=== PATIENT | female | born 2000 | race African-American/Black ===

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

== ENCOUNTER 2018-02-25 12:16 | Emergency (ER) | payer MEDICAID ==
[~2018-02-25] VITALS: Ht 170.2 cm; Wt 86.2 kg
[~2018-02-25 12:16] MED LIST: ANUSOL-HC30 GM RC; COLACE100 MG ORAL
[2018-02-25] MEDS ORDERED: NKM (12:24)
[2018-02-25 12:35] VITALS: BP 122/77
[2018-02-25] MEDS ORDERED: Acetaminophen 500mg (ES) tab ORAL ONE (13:00)
--- NOTE | 2018-02-25 13:03 | Emergency Room Report ---
History of Present Illness General Chief Complaint: Vaginal Source: Patient Present Illness HPI 17-year-old female patient presents ER complaining of vaginal bleeding for the past 2 days. Reports symptoms began yesterday. Reports has gone through "10 heavy-soaked pads" since that time. Reports noting clots in urine. Denies dysuria. Reports abdominal cramping during this time. Reports history of IUD placed in May, states "I think it may be related to my IUD". Denies dysuria, flank pain, fever, vomiting, chest pain, shortness of breath. Denies syncope or dizziness. Denies diarrhea, reports history of constipation. Reports last bowel movement yesterday. Reports hx of , reports terminated by choice, reports no complications. Allergies: Coded Allergies: No Known Allergies (Unverified , 02/25/18) Patient History Past Medical History: see triage record Last Menstrual Period: 02/22/18 Now: No Reviewed Nursing Documentation: PMH: Agreed; PSxH: Agreed Nursing Documentation-PMH Past Medical History: No Stated History Review of Systems All Other Systems: negative except mentioned in HPI Physical Exam Vital Signs Date Time Temp Pulse Resp B/P (MAP) Pulse Ox O2 Delivery O2 Flow Rate FiO2 02/25/18 12:19 98.2 66 18 122/77 100 Room Air Sp02 EP Interpretation: reviewed, normal General Appearance: well appearing, no apparent distress, alert, GCS 15, non- toxic Head: normocephalic, atraumatic Eyes: bilateral eye normal inspection, bilateral eye PERRL ENT: hearing grossly normal, normal pharynx, no angioedema, normal voice, uvula midline, moist mucus membranes Neck: full range of motion Respiratory: lungs clear, normal breath sounds, no rhonchi, no respiratory distress, no accessory muscle use, no wheezing, speaking full sentences Cardiovascular #1: regular rate, rhythm, no edema Gastrointestinal: non tender, soft, no mass, non-distended, no guarding, no rebound Genitourinary: no CVA tenderness, deferred Musculoskeletal: back normal, digits/nails normal, gait/station normal, normal range of motion, non-tender Neurologic: alert, oriented x3, responsive, motor strength/tone normal, sensory intact Psychiatric: mood/affect normal Skin: no rash Medical Decision Making PA Attestation Dr. Salamanca is my supervising Physician whom patient management has been discussed with. Diagnostic Impression: Primary Impression: Dysfunctional uterine bleeding Additional Impression: Constipation ER Course Pt presents to ED c/o vaginal bleeding. DDX considered but are not limited to threatened , incomplete , complete , ectopic, UTI, septic , fibroids, dysfunctional uterine bleeding, STI, ovarian torsion, anemia, constipation, menstrual cramps. No abdominal tenderness to palpation, low suspicion for acute abdomen. Negative Rovsing, no fever, low suspicion for appendicitis, does not require CT at this time. VITAL SIGNS are WNL, patient is afebrile Pelvic exam: deferred. Ordered CBC, CMP, Type and Screen, UA, UCG, bHCG, IV NS and pelvic US. Tylenol for pain control. ER COURSE: CBC and CMP unremarkable, no elevation in WBCs or LFTs, Lipase not elevated, H& H normal UA results blood in urine, no signs of infection Urine negative BetaHCG <1 Rh antibody negative Blood type B positive Results discussed with patient. Pelvic US shows IUD in place, essentially unremarkable exam otherwise, trace free cul-de-sac fluid, likely physiologic. Results discussed with patient. Needs further testing and evaluation for vaginal bleeding as outpatient. Patient resting comfortably, in no acute distress, nontoxic appearing. F/u with OBGYN Patient complaining of constipation. Will provide with lactulose for constipation symptoms. Take Tylenol for pain. Followup with PCP. Discuss referral to GI. DISCHARGE: -Rx provided for Tylenol for pain -Rx provided for lactulose At this time pt. is stable for d/c to home. At this time patient is resting comfortably, in no acute distress, nontoxic appearing, smiling and talking without difficulty. Will provide printed patient care instructions, and any necessary prescriptions. Patient instructed to follow with OBGYN for further treatment and referral as needed. Care plan and follow up instructions have been discussed with the patient prior to discharge. Patient reports understanding and agreement to treatment plan. Patient questions asked and answered. ER precautions given, patient instructed to return to ER immediately for any new or worsening of symptoms. - Please note that this Emergency Department Report was dictated using [employer] specialist technology software, occasionally this can lead to erroneous entry secondary to interpretation by the dictation equipment. Labs Test 02/25/18 13:19 02/25/18 13:20 Urine Color Yellow Urine Appearance Clear Urine pH 5 (4.5-8.0) Urine Specific [place] 1.015 (1.005-1.035) Urine Protein 1+ (NEGATIVE) Urine Glucose (UA) Negative (NEGATIVE) Urine Ketones Negative (NEGATIVE) Urine Blood 5+ (NEGATIVE) Urine Nitrite Negative (NEGATIVE) Urine Bilirubin Negative (NEGATIVE) Urine Urobilinogen Normal MG/DL (0.0-1.0) Urine Leukocyte Esterase 1+ (NEGATIVE) Urine RBC 30-40 /HPF (0 - 2) Urine WBC 0-2 /HPF (0 - 2) Urine Squamous Epithelial Cells Occasional /LPF Urine Bacteria Occasional /HPF (NONE) Urine HCG, Qualitative Negative (NEGATIVE) White Blood Count 7.0 K/UL (4.8-10.8) Red Blood Count 4.78 M/UL (4.20-5.40) Hemoglobin 13.3 G/DL (12.0-16.0) Hematocrit 40.3 % (37.0-47.0) Mean Corpuscular Volume 84 FL (80-99) Mean Corpuscular Hemoglobin 27.7 PG (27.0-31.0) Mean Corpuscular Hemoglobin Concent 32.9 G/DL (32.0-36.0) Red Cell Distribution Width 12.1 % (11.6-14.8) Platelet Count 213 K/UL (150-450) Mean Platelet Volume 8.7 FL (6.5-10.1) Neutrophils (%) (Auto) 60.3 % (45.0-75.0) Lymphocytes (%) (Auto) 30.0 % (20.0-45.0) Monocytes (%) (Auto) 5.8 % (1.0-10.0) Eosinophils (%) (Auto) 2.9 % (0.0-3.0) Basophils (%) (Auto) 1.0 % (0.0-2.0) Sodium Level 141 MMOL/L (136-145) Potassium Level 3.7 MMOL/L (3.5-5.1) Chloride Level 105 MMOL/L (98-107) Carbon Dioxide Level 26 MMOL/L (21-32) Anion Gap 10 mmol/L (5-15) Blood Urea Nitrogen 13 mg/dL (7-18) Creatinine 0.8 MG/DL (0.55-1.30) Estimat Glomerular Filtration Rate > 60 mL/min (>60) Glucose Level 87 MG/DL (74-106) Calcium Level 9.6 MG/DL (8.5-10.1) Total Bilirubin 0.3 MG/DL (0.2-1.0) Aspartate Amino Transf (AST/SGOT) 10 U/L (15-37) Alanine Aminotransferase (ALT/SGPT) 19 U/L (12-78) Alkaline Phosphatase 99 U/L (46-116) Total Protein 9.0 G/DL (6.4-8.2) Albumin 4.2 G/DL (3.4-5.0) Globulin 4.8 g/dL Albumin/Globulin Ratio 0.9 (1.0-2.7) Lipase 91 U/L (73-393) Human Chorionic Gonadotropin, Quant < 1 mIU/mL (1-6) CT/MRI/US Diagnostic Results CT/MRI/US Diagnostic Results : Imaging Test Ordered: Pelvic US Impression Per bicycle service technician, IUD in correct placement, remainder of exam negative Last Vital Signs Date Time Temp Pulse Resp B/P (MAP) Pulse Ox O2 Delivery O2 Flow Rate FiO2 02/25/18 12:35 98.2 18 122/77 100 Room Air 02/25/18 12:19 66 Status: improved Disposition: HOME, SELF-CARE Condition: Stable Scripts Lactulose (LACTULOSE*) 20 Gm/30 Ml Solution 30 ML ORAL DAILY, #90 ML 0 Refills Prov: Landon Santana 02/25/18 Acetaminophen* (TYLENOL EXTRA STRENGTH*) 500 Mg Tablet 500 MG ORAL Q8H PRN for Prn Headache/Temp > 101, #30 TAB 0 Refills Prov: Landon Santana 02/25/18 Patient Instructions: Dysfunctional Uterine Bleeding Additional Instructions: Followup with OBGYN in 1-2 days. Take medications as directed. Take Tylenol for pain, do not take Ibuprofen. Patient questions asked and answered. ER precautions given, patient instructed to return to ER immediately for any new or worsening of symptoms including but not limited to chest pain, SOB, intractable vomiting, profuse vaginal bleeding, abdominal pain. Blood type B positive Rh anitbody negative Landon Santana Feb 25, 2018 13:03
[2018-02-25 13:32] LABS: APPEARANCE,URINE CLEAR; BILIRUBIN, URINE NEGATIVE (NEGATIVE); GLUCOSE, URINE (UA) NEGATIVE (NEGATIVE); KETONES,URINE NEGATIVE (NEGATIVE); LEUKOCYTE ESTERASE ,URINE 1+ (NEGATIVE); NITRITE,URINE NEGATIVE (NEGATIVE); PH,URINE 5 (4.5-8.0); PROTEIN,URINE 1+ (NEGATIVE); UROBILINOGEN,URINE NORMAL MG/DL (0.0-1.0)
[2018-02-25 13:39] LABS: EOSINOPHILS % (AUTO) 2.9 % (0.0-3.0); HEMATOCRIT 40.3 % (37.0-47.0); HEMOGLOBIN 13.3 G/DL (12.0-16.0); MEAN CORPUSCULAR VOLUME 84 FL (80-99); MONOCYTES % (AUTO) 5.8 % (1.0-10.0); NEUTROPHILS % (AUTO) 60.3 % (45.0-75.0); PLATELET COUNT 213 K/UL (150-450); RED BLOOD COUNT 4.78 M/UL (4.20-5.40); RED CELL DISTRIBUTION WIDTH 12.1 % (11.6-14.8)
[2018-02-25 13:49] LABS: COLOR,URINE YELLOW
[2018-02-25 13:53] LABS: ANION GAP 10 mmol/L (5-15); BLOOD UREA NITROGEN 13 mg/dL (7-18); CALCIUM 9.6 MG/DL (8.5-10.1); CARBON DIOXIDE 26 MMOL/L (21-32); CHLORIDE 105 MMOL/L (98-107); CREATININE 0.8 MG/DL (0.55-1.30); POTASSIUM 3.7 MMOL/L (3.5-5.1); SODIUM 141 MMOL/L (136-145)
[2018-02-25 13:57] LABS: ALANINE AMINOTRANSFERASE 19 U/L (12-78); ALBUMIN 4.2 G/DL (3.4-5.0); ALBUMIN/GLOBULIN RATIO 0.9 (1.0-2.7); ALKALINE PHOSPHATASE 99 U/L (46-116); ASPARTATE AMINO TRANSFERASE 10 U/L (15-37); BILIRUBIN,TOTAL 0.3 MG/DL (0.2-1.0)
[2018-02-25 15:15] VITALS: BP 120/68
--- NOTE | 2018-02-25 15:25 | Diagnostic Imaging Report ---
Indication: History vaginal bleeding, negative test Technique: Transabdominal and transvaginal images. Doppler interrogation of the bilateral ovaries Comparison: none Findings: Uterus measures 7.4 cm length by 3.4 cm AP. Within the endometrium, there is an intrauterine device, appearing appropriately positioned. Endometrium measures 5 mm thick. No myometrial abnormality. There is trace cul-de-sac fluid. Right ovary measures 3.5 cm length. Left ovary measures 3 cm length. No adnexal mass. Impression: Intrauterine device in place Essentially unremarkable exam otherwise. Note trace free cul-de-sac fluid, presumably physiologic
[2018-02-25] MEDS ORDERED: LACTULOSE20 GM/301 ORAL (15:31)
[2018-02-25] MEDS ORDERED: TYLENOL EXTRA500 MG ORAL (15:31)
[2018-02-25 15:36] VITALS: BP 106/57
== END 2018-02-25 15:36 | disposition home or self-care (01) ==
LOC: EMR 13:26
DX: N93.8 Other specified abnormal uterine and vaginal bleeding (principal); K59.00 Constipation, unspecified
CPT/HCPCS: 36415; 76830; 76856; 80053; 81003; 81025; 83690; 84702; 85025; 86850; 86900; 86901; 96360; 99284

== ENCOUNTER 2018-08-03 16:43 | Emergency (ER) | payer MEDICAID ==
[~2018-08-03] VITALS: Ht 170.2 cm; Wt 83.9 kg
[~2018-08-03 16:43] MED LIST changes: +LACTULOSE20 GM/301 ORAL; +NKM; +TYLENOL EXTRA500 MG ORAL
[2018-08-03 16:49] VITALS: BP 103/66
--- NOTE | 2018-08-03 16:55 | NUR ---
ED Nurse Note: Patient walked into ED c/o vaginal itching, odor, and discharge for 1 week. patient reports history of baterial vaginosis patient is alert awake x4 ambulatory.
--- NOTE | 2018-08-03 17:22 | NUR ---
ED Nurse Note: Urine sent to lab
--- NOTE | 2018-08-03 17:23 | Emergency Room Report ---
History of Present Illness General Chief Complaint: Female Urogenital Problems Source: Patient Present Illness HPI 17-year-old female presents to the emergency department complaining of dysuria, vaginal itching, discharge and odor times one week. Patient reports that she was treated for similar symptoms approximately one month ago with metronidazole. Patient states that her symptoms assault but then began to return again several days later. Patient does report having unprotected intercourse since her first treatment. Patient denies suspicion for STD she denies swollen tender lymph nodes, fevers, chills, external genital lesions, rashes, abdominal pain or tenderness. Patient denies pain with intercourse. Patient denies nausea or vomiting. Patient also denies suspicion for . Allergies: Coded Allergies: No Known Allergies (Unverified , 02/25/18) Patient History Past Medical History: see triage record Past Surgical History: none Pertinent Family History: none Last Menstrual Period: 07/26/18 Now: No Reviewed Nursing Documentation: PMH: Agreed; PSxH: Agreed Nursing Documentation-PMH Past Medical History: No Stated History Review of Systems All Other Systems: negative except mentioned in HPI Physical Exam Vital Signs Date Time Temp Pulse Resp B/P (MAP) Pulse Ox O2 Delivery O2 Flow Rate FiO2 08/03/18 16:49 98.4 62 20 103/66 98 Room Air Sp02 EP Interpretation: reviewed, normal General Appearance: no apparent distress, alert, GCS 15, non-toxic Head: normocephalic, atraumatic Eyes: bilateral eye normal inspection, bilateral eye PERRL ENT: hearing grossly normal, normal voice Neck: full range of motion Respiratory: chest non-tender, lungs clear, normal breath sounds, speaking full sentences Cardiovascular #1: regular rate, rhythm Gastrointestinal: normal bowel sounds, non tender, soft Rectal: deferred Genitourinary: normal inspection, no CVA tenderness Musculoskeletal: back normal, gait/station normal, normal range of motion Neurologic: alert, oriented x3, responsive, motor strength/tone normal, sensory intact, speech normal, grossly normal Psychiatric: judgement/insight normal Skin: normal color, no rash, warm/dry, well hydrated Lymphatic: no adenopathy Medical Decision Making PA Attestation Dr. Salamanca is my supervising Physician whom patient management has been discussed with. Diagnostic Impression: Primary Impression: Vaginitis Qualified Codes: N76.0 - Acute vaginitis ER Course 17-year-old female presents to the emergency department complaining of dysuria, vaginal itching, discharge and odor times one week. Patient reports that she was treated for similar symptoms approximately one month ago with metronidazole. Patient states that her symptoms assault but then began to return again several days later. Patient does report having unprotected intercourse since her first treatment. Patient denies suspicion for STD she denies swollen tender lymph nodes, fevers, chills, external genital lesions, rashes, abdominal pain or tenderness. Patient denies pain with intercourse. Patient denies nausea or vomiting. Patient also denies suspicion for . Ddx considered but are not limited to UTi , Pyelo, STI, Stone, Cystitis, vaginal laceration, vaginitis. Vital signs: are WNL, pt. is afebrile H& PE are most consistent with: Vaginitis ORDERS: - UA labs are attached -Urine HCG: ED INTERVENTIONS: -Diflucan PO DISCHARGE: At this time pt. is stable for d/c to home. Will provide printed patient care instructions, and any necessary prescriptions. Care plan and follow up instructions have been discussed with the patient prior to discharge. discussed with the patient prior to discharge. Labs Test 08/03/18 17:02 Urine Color Yellow Urine Appearance Clear Urine pH 5 (4.5-8.0) Urine Specific [place] 1.020 (1.005-1.035) Urine Protein Negative (NEGATIVE) Urine Glucose (UA) Negative (NEGATIVE) Urine Ketones Negative (NEGATIVE) Urine Blood Negative (NEGATIVE) Urine Nitrite Negative (NEGATIVE) Urine Bilirubin Negative (NEGATIVE) Urine Urobilinogen 1 MG/DL (0.0-1.0) Urine Leukocyte Esterase 1+ (NEGATIVE) Urine RBC 0-2 /HPF (0 - 2) Urine WBC 2-4 /HPF (0 - 2) Urine Squamous Epithelial Cells Few /LPF (NONE/OCC) Urine Bacteria Few /HPF (NONE) Urine HCG, Qualitative Negative (NEGATIVE) Last Vital Signs Date Time Temp Pulse Resp B/P (MAP) Pulse Ox O2 Delivery O2 Flow Rate FiO2 08/03/18 16:49 98.4 62 20 103/66 98 Room Air Disposition: HOME, SELF-CARE Condition: Stable Scripts Fluconazole (FLUCONAZOLE) 100 Mg Tablet 100 MG ORAL DAILY, #4 TAB 0 Refills Prov: Arlin Ford 08/03/18 Metronidazole* (FLAGYL*) 500 Mg Tablet 500 MG ORAL BID for 5 Days, #10 TAB Prov: Arlin Ford 08/03/18 Referrals: NOT CHOSEN IPA/MD,REFERRING (PCP) Patient Instructions: Vaginitis Additional Instructions: Take medications as directed. Follow up with a DIGITAL MEDIA DIRECTOR within 3 days, even if your symptoms have resolved. * * Return sooner to ED if new symptoms occur, or current symptoms become worse. - Please note that this Emergency Department Report was dictated using [employer] builder technology software, occasionally this can lead to erroneous entry secondary to interpretation by the dictation equipment. Arlin Ford Aug 03, 2018 17:23
[2018-08-03 17:38] LABS: APPEARANCE,URINE CLEAR; BILIRUBIN, URINE NEGATIVE (NEGATIVE); GLUCOSE, URINE (UA) NEGATIVE (NEGATIVE); KETONES,URINE NEGATIVE (NEGATIVE); LEUKOCYTE ESTERASE ,URINE 1+ (NEGATIVE); NITRITE,URINE NEGATIVE (NEGATIVE); PH,URINE 5 (4.5-8.0); PROTEIN,URINE NEGATIVE (NEGATIVE); UROBILINOGEN,URINE 1 MG/DL (0.0-1.0)
[2018-08-03 17:45] LABS: COLOR,URINE YELLOW
[2018-08-03] MEDS ORDERED: FLUCONAZOLE100 MG ORAL (17:53)
[2018-08-03] MEDS ORDERED: METRONIDAZOLE500 MG ORAL (17:53)
[2018-08-03 18:02] VITALS: BP 103/66
--- NOTE | 2018-08-03 18:02 | NUR ---
ER DISCHARGE NOTE: Patient is cleared to be discharged per YOAN BARRETT, pt is aox4, on room air, with stable vital signs. pt was given dc and prescription instructions, pt was able to verbalize understanding, pt id band removed without complications. pt is able to ambulate with steady gait. pt took all belongings.
== END 2018-08-03 18:09 | disposition home or self-care (01) ==
LOC: EMR 17:18
DX: N76.0 Acute vaginitis (principal)
CPT/HCPCS: 81003; 81025; 99283

== ENCOUNTER 2020-01-30 07:41 | Emergency (ER) | payer MEDICAID ==
[~2020-01-30] VITALS: Ht 170.2 cm; Wt 90.7 kg
[~2020-01-30 07:41] MED LIST changes: +FLUCONAZOLE100 MG ORAL; +METRONIDAZOLE500 MG ORAL
--- NOTE | 2020-01-30 08:04 | Emergency Room Report ---
History of Present Illness General Chief Complaint: Headache Source: Patient Present Illness HPI Disclaimer: Please note that this report is being documented using [employer] technology. This can lead to erroneous entry secondary to incorrect interpretation by the dictating instrument. HPI: 19-year-old female presenting for evaluation of headache. Symptoms present over the past 2 days. She reports drinking alcohol to days ago and waking up with a headache. She took some leftover Tylenol No. 3 that she had from a previous dental procedure. Improved her headache slightly though she awoke this morning approximately 1 AM with 10 out of 10 headache localized over the frontal and right side. She reports photosensitivity. Reports nausea but no vomiting. Denies recent fever or chills. Denies head injury. Does not take anticoagulants. Headache is made worse by bending over. Reports increased pressure in her head. Denies nasal congestion, postnasal drip, sore throat, cough, fever, chills, chest pain, vomiting or diarrhea otherwise. No prior history of headaches or migraines. LMP 2 weeks ago and patient has IUD in place PMH: Denied PSH: IUD placement Allergies: Denied Social Hx: Show alcohol Allergies: Coded Allergies: No Known Allergies (Unverified , 02/25/18) COVID-19 Screening Contact w/high risk pt: No Experienced COVID-19 symptoms?: No COVID-19 Testing performed STATION USHER: No Patient History Last Menstrual Period: 01/09/2020 Now: No Nursing Documentation-PMH Past Medical History: No Stated History Review of Systems All Other Systems: negative except mentioned in HPI Physical Exam Vital Signs Date Time Temp Pulse Resp B/P (MAP) Pulse Ox O2 Delivery O2 Flow Rate FiO2 01/30/20 07:50 98.1 66 20 115/72 (86) 96 Room Air General: Awake and alert, mildly uncomfortable appearing HEENT: NC/AT. EOMI. PERRLA. No nystagmus. Cardiovascular: RRR. Resp: Normal work of breathing. Skin: Intact. No abrasions, laceration or rash over the exposed skin MSK: Normal tone and bulk. Moving all extremities. No obvious deformity. Neuro: Awake and alert. Mentating appropriately. Ambulating with steady gait. No ataxia. No nystagmus. Medical Decision Making Diagnostic Impression: Primary Impression: Hemorrhoid Additional Impression: Headache ER Course 19-year-old female presenting for evaluation of headache. Differential includes was not limited to intracranial bleed, no cranial mass, generalized headache, cluster headache, migraine headache, dehydration, symptoms of alcohol use, rebound headache from narcotic use. As the pain suddenly woke the patient from sleep this morning a CT scan of the head was obtained but did not show any acute findings. She was treated with Tylenol, Zofran and Tums. Will continue on NSAIDs. Counseled her not to use narcotic pain medication for treatment of headache in the future. Patient is requesting medication for hemorrhoids as well. I will prescribe. Follow-up with PMD recommended if headaches continue. Also counseled patient alcohol should be avoided as could be a trigger for headaches. She understands and agrees with this treatment plan. CT/MRI/US Diagnostic Results CT/MRI/US Diagnostic Results : Impression MPRESSION: No acute intracranial hemorrhage, midline shift, or mass effect. Dictated By: Kelvin Cintron M.D. Electronically Signed By:Kelvin Cintron M.D. Signed Date/Time01/30/20 0838 CC: Mason Raya MD Last Vital Signs Date Time Temp Pulse Resp B/P (MAP) Pulse Ox O2 Delivery O2 Flow Rate FiO2 01/30/20 07:50 98.1 66 20 115/72 (86) 96 Room Air Disposition: HOME, SELF-CARE Condition: Stable Scripts Hydrocortisone Hc 2.5% Cream (ANUSOL-HC 2.5% CREAM) Y Cr 30 GM RC BID, #30 GM Prov: Mason Raya MD 01/30/20 Hydrocortisone Acetate* (ANUSOL-HC*) 25 Mg Supp.rect 1 SUPP RECTAL TWICE A DAY, #20 SUPP Prov: Mason Raya MD 01/30/20 Ondansetron Odt* (ZOFRAN ODT*) 4 Mg Tab.rapdis 4 MG BC EVERY 6 HOURS PRN for Nausea & Vomiting, #20 TAB 0 Refills Prov: Mason Raya MD 01/30/20 Ibuprofen* (MOTRIN*) 600 Mg Tablet 600 MG ORAL Q6H PRN for For Pain, #30 TAB 0 Refills Prov: Mason Raya MD 01/30/20 Acetaminophen* (TYLENOL EXTRA STRENGTH*) 500 Mg Tablet 500 MG ORAL Q8H PRN for Prn Headache/Temp > 101, #30 TAB 0 Refills Prov: Mason Raya MD 01/30/20 Referrals: NOT CHOSEN [facility]/,REFERRING (PCP) Mason Raya MD Jan 30, 2020 08:04
[2020-01-30 08:10] VITALS: BP 115/72
--- NOTE | 2020-01-30 08:38 | Diagnostic Imaging Report ---
EXAM: CT Head Without Intravenous Contrast CLINICAL HISTORY: H/A TECHNIQUE: Axial computed tomography images of the head/brain without intravenous contrast. CTDI is 53.4 mGy and DLP is 912 mGy-cm. One or more of the following dose reduction techniques were used: automated exposure control, adjustment of the mA and/or kV according to patient size, use of iterative reconstruction technique. COMPARISON: No relevant prior studies available. FINDINGS: No acute intracranial hemorrhage. No midline shift or mass effect. The territorial pinon-white matter differentiation is maintained throughout. The ventricles and sulci are commensurate with age. The visualized orbits appear grossly unremarkable. The calvarium is intact. The visualized paranasal sinuses and mastoid air cells are grossly clear. IMPRESSION: No acute intracranial hemorrhage, midline shift, or mass effect.
[2020-01-30] MEDS ORDERED: IBUPROFEN600 M1 ORAL (08:42)
[2020-01-30] MEDS ORDERED: TYLENOL EXTRA500 MG ORAL (08:42)
[2020-01-30] MEDS ORDERED: ONDANSETRON ODT4 MG BC (08:42)
[2020-01-30] MEDS ORDERED: Ketorolac 30mg Inj IM ONE (08:45)
[2020-01-30] MEDS ORDERED: ANUSOL-HC30 GM RC (08:51)
[2020-01-30] MEDS ORDERED: ANUSOL-HC25 MG RECTAL (08:51)
[2020-01-30 08:55] VITALS: BP 115/72
== END 2020-01-30 08:55 | disposition home or self-care (01) ==
LOC: EMR 07:58
DX: R51.9 Headache, unspecified (principal); K64.9 Unspecified hemorrhoids; Z97.5 Presence of (intrauterine) contraceptive device
CPT/HCPCS: 70450; 96372; J1885; Z7502; 99284